=== PATIENT | male | born 1955 | race Caucasian/White ===

== ENCOUNTER 2018-03-29 15:43 | Outpatient (REF) | payer BC, SELFPAY ==
[2018-03-29 22:16] LABS: Anion Gap 9.7 mmol/L (3-11); BUN 16 mg/dL (7-18); CO2 27.3 mmol/L (21.0-32.0); CREATININE 1.01 mg/dL (0.70-1.30); Calcium 8.4 mg/dL (8.5-10.1); Chloride 106 mmol/L (98-107); Cholesterol 147 mg/dL (50-200); Glucose 120 mg/dL (70-100); HDL Cholesterol 32 mg/dL (40-60); LDL CHOLESTEROL 87 mg/dL (<100); Potassium 4.1 mmol/L (3.5-5.1); Sodium 143 mmol/L (136-145); Triglyceride 235 mg/dL (30-150)
[2018-03-29 22:57] LABS: Hemoglobin A1C 6.2 % (4.5-6.2)
== END 2018-03-29 15:44 ==
LOC: NCHCN 15:43
PROVIDERS: PCP Internal Medicine; Visit Provider Internal Medicine
DX: Z00.00 Encounter for general adult medical examination without abnormal findings (principal); I25.10 Atherosclerotic heart disease of native coronary artery without angina pectoris; E11.9 Type 2 diabetes mellitus without complications
CPT/HCPCS: 80048; 80061; 83721; 83036

== ENCOUNTER 2019-03-18 10:47 | Outpatient (REF) | payer MEDICARE, BC, SELFPAY ==
[2019-03-18 21:34] LABS: Anion Gap 8.2 mmol/L (3-11); BUN 22 mg/dL (7-18); CO2 28.8 mmol/L (21.0-32.0); Calcium 8.7 mg/dL (8.5-10.1); Chloride 106 mmol/L (98-107); Glucose 129 mg/dL (70-100); Potassium 4.4 mmol/L (3.5-5.1); Sodium 143 mmol/L (136-145)
[2019-03-18 21:42] LABS: Hemoglobin A1C 6.3 % (4.5-6.2)
[2019-03-18 21:56] LABS: COMMENT (LAB VIEW ONLY) 250.67 mg/dL
[2019-03-18 22:25] LABS: Microalb ug/mg Crea 4.6 ug/mg Cr
[2019-03-18 23:04] LABS: Calculated LDL 74 mg/dL; Cholesterol 141 mg/dL (50-200); HDL Cholesterol 30 mg/dL (40-60); Triglyceride 185 mg/dL (30-150)
== END 2019-03-18 11:07 ==
LOC: NCHCN 10:47
PROVIDERS: PCP Internal Medicine; Visit Provider Internal Medicine
DX: R03.0 Elevated blood-pressure reading, without diagnosis of hypertension (principal); E11.9 Type 2 diabetes mellitus without complications; E78.5 Hyperlipidemia, unspecified
CPT/HCPCS: 80048; 80061; 83721; 82043; 82570; 83036

== ENCOUNTER 2019-10-13 08:39 | Outpatient (REF) | payer MEDICARE, BC, SELFPAY ==
[2019-10-13 21:46] LABS: ALT 247 U/L (16-63); AST 236 U/L (15-37); Albumin 3.8 g/dL (3.4-5.0); Alkaline Phosphatase 118 U/L (46-116); Anion Gap 9.4 mmol/L (3-11); BUN 18 mg/dL (7-18); Bilirubin, Total 1.9 mg/dL (0.2-1.0); CO2 27.6 mmol/L (21.0-32.0); CREATININE 0.89 mg/dL (0.70-1.30); Calcium 8.6 mg/dL (8.5-10.1); Chloride 104 mmol/L (98-107); Glucose 133 mg/dL (74-106); Potassium 3.8 mmol/L (3.5-5.1); Sodium 141 mmol/L (136-145); Total Protein 6.5 g/dL (6.4-8.2)
== END 2019-10-13 08:59 ==
LOC: NCHCN 08:39
PROVIDERS: PCP Internal Medicine; Visit Provider Internal Medicine
DX: I25.10 Atherosclerotic heart disease of native coronary artery without angina pectoris (principal); K80.18 Calculus of gallbladder with other cholecystitis without obstruction; K76.0 Fatty (change of) liver, not elsewhere classified
CPT/HCPCS: 80053

== ENCOUNTER 2020-04-09 09:40 | Outpatient (REF) | payer MEDICARE, SELFPAY ==
[2020-04-09 21:26] LABS: ALT 34 U/L (16-63); AST 25 U/L (15-37); Albumin 3.9 g/dL (3.4-5.0); Alkaline Phosphatase 65 U/L (46-116); Anion Gap 6.1 mmol/L (3-11); BUN 13 mg/dL (7-18); CO2 29.9 mmol/L (21.0-32.0); Calcium 8.8 mg/dL (8.5-10.1); Calculated LDL 79 mg/dL (<100); Chloride 108 mmol/L (98-107); Cholesterol 159 mg/dL (<200); Glucose 130 mg/dL (74-106); HDL Cholesterol 28 mg/dL (40-60); Potassium 4.8 mmol/L (3.5-5.1); Sodium 144 mmol/L (136-145); Total Protein 6.8 g/dL (6.4-8.2); Triglyceride 263 mg/dL (<150)
[2020-04-10 18:41] LABS: PSA, Screening 1.9 ng/mL (0.0-4.5)
== END 2020-04-09 10:00 ==
LOC: NCHCN 09:40
PROVIDERS: PCP Internal Medicine; Visit Provider Internal Medicine
DX: E78.5 Hyperlipidemia, unspecified (principal); E11.9 Type 2 diabetes mellitus without complications; Z12.5 Encounter for screening for malignant neoplasm of prostate
CPT/HCPCS: 80053; 80061; 84153

== ENCOUNTER 2021-04-03 16:41 | Outpatient (REF) | payer MEDICARE, SELFPAY ==
[2021-04-03 18:03] LABS: Hemoglobin A1C 6.4 % (<5.7)
[2021-04-03 18:06] LABS: Anion Gap 9.6 mmol/L (3-11); BUN 21 mg/dL (7-18); CO2 28.4 mmol/L (21.0-32.0); Calcium 8.5 mg/dL (8.5-10.1); Chloride 106 mmol/L (98-107); Cholesterol 174 mg/dL (<200); Glucose 134 mg/dL (74-106); HDL Cholesterol 25 mg/dL (40-60); Sodium 144 mmol/L (136-145); Triglyceride 487 mg/dL (<150)
[2021-04-03 18:39] LABS: LDL CHOLESTEROL 77 mg/dL (<100)
== END 2021-04-03 16:42 | disposition home or self-care (01) ==
LOC: NCHCN 16:41
PROVIDERS: PCP Internal Medicine; Visit Provider Internal Medicine
DX: E11.9 Type 2 diabetes mellitus without complications (principal); E78.5 Hyperlipidemia, unspecified; I10 Essential (primary) hypertension
CPT/HCPCS: 80048; 80061; 83721; 83036

== ENCOUNTER 2021-04-12 16:02 | Outpatient (REF) | payer MEDICARE, SELFPAY ==
[2021-04-12 21:14] LABS: COMMENT (LAB VIEW ONLY) 128.91 mg/dL; Microalb ug/mg Crea 7.8 ug/mg Cr
== END 2021-04-12 16:03 | disposition home or self-care (01) ==
LOC: NCHCN 16:02
PROVIDERS: PCP Internal Medicine; Visit Provider Internal Medicine
DX: E11.9 Type 2 diabetes mellitus without complications (principal)
CPT/HCPCS: 82043; 82570

== ENCOUNTER 2021-07-03 08:11 | Outpatient (REF) | payer MEDICARE, SELFPAY ==
[2021-07-03 19:26] LABS: Hemoglobin A1C 5.9 % (<5.7)
[2021-07-03 19:27] LABS: Calculated LDL 89 mg/dL (<100); Cholesterol 159 mg/dL (<200); HDL Cholesterol 33 mg/dL (40-60); Triglyceride 186 mg/dL (<150)
== END 2021-07-03 08:12 | disposition home or self-care (01) ==
LOC: NCHCN 08:11
PROVIDERS: PCP Internal Medicine; Visit Provider Internal Medicine
DX: E78.5 Hyperlipidemia, unspecified (principal); E11.9 Type 2 diabetes mellitus without complications
CPT/HCPCS: 80061; 83036

== ENCOUNTER 2021-12-06 13:59 | Outpatient (REF) | payer MEDICARE, SELFPAY ==
[2021-12-06 14:12] LABS: HCT 47.1 % (40.0-50.0); HGB 15.1 g/dL (13.5-17.5); MCH 29.1 pg (27.0-33.0); MCHC 32.1 % (32.0-36.0); MCV 91 fL (80-95); MPV 12.6 fL (8.0-11.0); Platelet Count 206 10^3/uL (130-400); RBC 5.19 10^6/uL (4.36-5.78); RDW 12.1 % (11.8-14.1); RDW-SD 40.3 fL
[2021-12-06 14:24] LABS: ALT 163 U/L (16-63); AST 119 U/L (15-37); Alkaline Phosphatase 516 U/L (46-116); Anion Gap 9.4 mmol/L (3-11); BUN 31 mg/dL (7-18); Bilirubin, Total 1.6 mg/dL (0.2-1.0); CO2 29.6 mmol/L (21.0-32.0); CREATININE 1.2 mg/dL (0.70-1.30); Calcium 9.1 mg/dL (8.5-10.1); Chloride 99 mmol/L (98-107); Glucose 117 mg/dL (74-106); Potassium 4.2 mmol/L (3.5-5.1); Sodium 138 mmol/L (136-145); Total Protein 6.8 g/dL (6.4-8.2)
[2021-12-06 15:11] LABS: Immature Grans % 0.5
[2021-12-06 15:22] LABS: Bands % 18
[2021-12-06 15:23] LABS: Diff Comment Manual Differential; RBC Morphology Normal
== END 2021-12-06 14:00 | disposition home or self-care (01) ==
LOC: NCHCN 13:59
PROVIDERS: PCP Internal Medicine; Visit Provider Nurse Practitioner Family
DX: R73.03 Prediabetes (principal); K76.0 Fatty (change of) liver, not elsewhere classified; R63.4 Abnormal weight loss
CPT/HCPCS: 80053; 85027; 85007

== ENCOUNTER 2021-12-18 15:15 | Emergency (ER) | payer MEDICARE, SELFPAY ==
[2021-12-18 15:17] VITALS: BP 130/83; PULSE 122; RESP 18; TEMP 36.4; O2SAT 97
--- NOTE | 2021-12-18 15:30 | RT.EKG_ITS ---
APPROVED REPORT Exam: Resting ECG Reason for Exam: chest pain Patient Location: E HR:111 bpm ECG Measurements Heart Rate 111 AXIS TX 144 P 72 QRSd 100 QRS -89 QT 314 T 21 QTc 427 Conclusion Sinus tachycardia. LAD, consider left anterior fascicular block...axis(240,-40), S>R II III aVF
[2021-12-18 15:41] LABS: Bilirubin Small (Negative); Blood Small (Negative); Clarity Clear (Clear); Glucose Negative (Negative); Ketones Negative (Negative); Leukocyte Esterase Negative (Negative); Nitrite Negative (Negative); Specific Gravity 1.025 (1.005-1.025); Urobilinogen >=8.0 EU/dL (Up TO 0.2); pH 5.5 (5-8)
[2021-12-18 15:52] LABS: Bacteria Negative HPF (Negative); C & S Indicated? No; Crystals Few Amorphous HPF (Negative); Epithelial Cells Negative HPF (Negative); Mucus Heavy (Negative); WBC Negative HPF (0-5)
--- NOTE | 2021-12-18 16:00 | DI.CT_ITS ---
Exam(s) CT CHEST/ABD/PEL WO EXAM: CT CHEST/ABD/PEL WO CLINICAL HISTORY: Fall, recent cancer diagnosis. Weakness. TECHNIQUE: Imaging Protocol: Axial computed tomography images with coronal and sagittal reformatted images were created and reviewed CONTRAST MATERIAL: Noncontrast COMPARISON: No exams were available for comparison FINDINGS: CHEST: Tracheobronchial tree: Patent where visualized. Mediastinum and Anne: No dominant adenopathy or fluid collection. Pulmonary parenchyma: No consolidation. Innumerable scattered bilateral pulmonary nodules consistent with metastatic disease. The largest is at the major fissure between the right middle and lower lob es. Pleura: No effusion or pneumothorax. Lymph nodes: Within normal limits. Aorta: Thoracic portion non-dilated. Heart: Normal size. Mediastinal clips related to prior CABG Bones: Sternal wires. No rib or spine fracture. No gross evidence of lytic or blastic lesions. Esophagus: Marked thickening of lower esophagus and apparent lower esophageal mass. ABDOMEN: Liver: Multiple low-density lesions throughout both lobes consistent with metastatic disease. Small amount of fluid is seen around the liver. Gallbladder and biliary tract: Status post cholecystectomy no radiodense calculus or dilation. Pancreas: Normal density, no abnormal calcifications or inflammatory process. Spleen: Normal size. Small amount of fluid around the spleen. Kidneys: Normal size, contour and axis. Nonobstructing stones lower pole both kidneys. No obstructiv e uropathy. No masses seen. Adrenal glands: No masses seen. Aorta: Abdominal portion non-dilated. Lymph nodes: Multiple abnormally enlarged lymph nodes the level of the celiac axis, pantera hepatis Soft tissues: Unremarkable. PELVIS: Bladder: Symmetric distention, mild wall thickening. Two small stones at the right side of the rpg developer ior bladder. Bowel: Sigmoid diverticulosis. No evidence of diverticulitis. Large quantity of stool in the rectum . No visible mass. Moderate quantity of stool elsewhere. No obstruction or bowel wall thickening. Peritoneal cavity: Free fluid in the low pelvis. No abscess collection or mesenteric inflammatory re sponse. Bones: Degenerative changes. No evidence of fracture. No lytic or blastic lesions are identified. Reproductive organs: Enlarged prostate. IMPRESSION: Marked wall thickening of the distal esophagus with likely mass. Multiple bilateral pulmonary metastases. Multiple liver metastases. Small amount of ascites. Upper abdominal adenopathy. No evidence fracture in the chest abdomen or pelvis. Large quantity of stool in the rectum. RADIATION DOSE DELIVERED: 1,213.58mGy.cm Total DLP DATA REPOSITORY: All CT scans at this facility are submitted to the National Radiology Data Registry (NRDR) Dose Index Registry (DIR) with the [employer] ([employer]). RADIATION OPTIMIZATION: All CT scans at this facility use at least one of these dose optimization te chniques: automated exposure control; mA and/or kV adjustment per patient size (includes targeted exa ms where dose is matched to clinical indication); or iterative reconstruction.
--- NOTE | 2021-12-18 16:00 | DI.CT_ITS ---
Exam(s) CT HEAD CERVICAL SPINE WO EXAM: CT HEAD CERVICAL SPINE WO CLINICAL HISTORY: Fall, recent cancer diagnosis, pain. TECHNIQUE: Imaging Protocol: Axial computed tomography images with coronal and sagittal reformatted images were created and reviewed COMPARISON: No exams were available for comparison FINDINGS: Head CT Ventricles and Extra axial spaces: Normal in size and morphology for the patient's age. Hemorrhage: None. Cerebral parenchyma: Mild atrophy. No evidence of mass or infarct. Midline shift: None. Brainstem/Cerebellum: Normal. Calvarium: Normal. Visualized Paranasal sinuses/Mastoids: Clear. Cervical Spine CT BONES: Vertebral body heights are maintained. Alignment is normal. There is no evidence of acute frac ture. Prominent endplate osteophytes prior projecting anteriorly and posteriorly, consistent with DISH. Na rrowing of the central canal from C5 through C7. SOFT TISSUES: No paraspinal hematoma. The airway appears intact. No pneumothorax is seen at the lung apices. IMPRESSION: Head CT: No acute abnormality. C-spine CT: Degenerative changes, no acute abnormality. RADIATION DOSE DELIVERED: 1,622.99mGy.cm Total DLP DATA REPOSITORY: All CT scans at this facility are submitted to the National Radiology Data Registry (NRDR) Dose Index Registry (DIR) with the [employer] (ACR). RADIATION OPTIMIZATION: All CT scans at this facility use at least one of these dose optimization te chniques: automated exposure control; mA and/or kV adjustment per patient size (includes targeted exa ms where dose is matched to clinical indication); or iterative reconstruction.
--- NOTE | 2021-12-18 16:16 | ED.GENADUL_ITS ---
Discharge Plan Disposition Patient Disposition: AGAINST MEDICAL ADVICE Condition: Serious Discharge Details Clinical Impression: Metastatic carcinoma, Acute dehydration, Non-ST elevation UT (NSTEMI) Primary Care Provider: Paulino Davison ED Provider: Ian Byrnes Home Meds and New Rx's Prescriptions: New lactulose 20 gram/30 mL solution 20 g PO BID 7 Days Qty: 420 0RF Discharge Instructions Instructions: Dehydration (ED) Additional Instructions: As we discussed you have elected to leave AGAINST MEDICAL ADVICE and risk of permanent disability or . Your work-up today revealed what appears to be metastatic cancer present in the lungs, liver, and esophagus. You had evidence of heart injury and heart attack. You were given aspirin tonight. Please call the [facility] tomorrow and asked them if you should continue aspirin prior to your planned procedure on Thursday. Take your lactulose as prescribed. This medication will help to clear your clare vated ammonia level, and may result in some loose stools. We have asked our career specialist to arrange a follow-up for you at [facility] at the end of this week or for Thursday. You may return at anytime for repeat evaluation Medical Decision Making This is a 66-year-old male who was recently seen in his primary care office for right upper quadrant pain and weight loss. He was referred to an outlying ER where he states she was diagnosed with metastatic lesions for which she has follow-up at the [facility] this week. He has had weakness and a 30 pound weight loss. His daughter states he seemed a little confused today and he had fallen. He did not hurt himself. He arrives to ER afebrile, interactive, he is dehydrated and tachycardic on exam. I obtained and reviewed patient's medical record from visit with Dr. Villa, [facility] on December 18. This notes diagnosis of abdominal pain, weight loss, metastatic malignant neoplasm. Patient with a previous history of prediabetes, gout, hyperlipidemia, coronary artery disease status post CABG, fatty liver disease. Immunizations including influenza and COVID-19 x3 are up-to-date. CT of the abdomen pelvis with IV contrast at [facility] on December 18 revealed thickened distal esophagus, abnormal lung nodules, and With low-density masses in the liver. Family states the patient was taken off of all medications. He previously was taking lisinopril 20 mg, amlodipine 5 mg, atorvastatin 40 mg, metformin 500 mg twice a day and aspirin 81 mg daily. He has primarily been existing on 2 daily ensures to boost calories. Today's imaging reveals liver, lung, esophageal carcinoma/mass. See the formal report. CT scan of the head and cervical spine were unremarkable for an acute process. Laboratory reveals multiple derangements. Patient's white blood cell count is 40, hematocrit 49, platelets 75 Potassium elevated at 5.5. BUN is 60 with creatinine 1.5. Total bili 2.1, AST 317, ALT 350, alk phos 1018. Albumin is 2.1. Ammonia level elevated at 64. Troponin is 1919. Patient has likely a component of hepatic encephalitis, he is having non-STEMI, he has acute kidney injury. Following 2 L of fluid the patient's pulse corrected by 30 points. He felt better. He stated he wished to be discharged to home and wanted to follow-up with his primary care physician in [place] as well as for planned outpatient biopsy on Thursday at the [facility]. We discussed the risks and benefits of leaving including permanent disability and . Patient demonstrates decision-making capacity and we worked collaboratively with his daughter at the bedside to determine the best disposition for the patient. I will prescribe him lactulose as an outpatient. Given the evidence of non-STEMI was given an aspirin, and will be instructed to call the [facility] tomorrow regarding preoperative medication management. HPI General Mode of arrival: ambulatory . Date/Time Provider Initiated Documentation: 12/18/21 15:33 . Limitations to Documentation: no limitations . Information obtained by: patient . History of Present Illness 66 year old M presents to the emergency department with the chief complaint of Fall, weakness, recent cancer diagnosis, described as moderate, Patient started experiencing this week(s) and it has been constant. improves with No relieving factors improve symptom(s), No exacerbating factors reported . Patient notes other (Mild ache to her right arm. No other significant pain. Has lost 30 pounds. Is scheduled for biopsy of liver lesion next week). Patient did receive the following treatments prior to arrival, none Related Data Home Medications Medication Instructions Recorded Confirmed lactulose 20 gram/30 mL oral 20 g (30 mL) PO BID 7 Days #420 ml 12/18/21 solution Previous Rx's Medication Instructions Recorded lactulose 20 gram/30 mL oral 20 g (30 mL) PO BID 7 Days #420 ml 12/18/21 solution General Stated Complaint: [facility] CASSANDRA: 3 Review of Systems Narrative: Weakness, weight loss of 30 pounds, decreased p.o. intake. Fell at home. No recent illness. 8 systems were reviewed and otherwise negative. PFSH All Active Problems (Updated 12/18/21 @ 18:35 by Ian Byrnes MD) Metastatic carcinoma (Acute) Acute dehydration (Acute) Non-ST elevation UT (NSTEMI) (Acute) Social History Smoking/Tobacco Use Status: Former Tobacco Use Smoking risk assessment performed?: Yes Alcohol Intake: never Drug use: Never Substance use type: does not use Exam Narrative Exam Narrative: GEN: awake, alert, oriented 3. Pleasant, cachectic HEAD: Normocephalic, atraumatic ENT: Mucous membranes dry, oropharynx unremarkable, External ear exam unremarkable EYES: PERRL, EOMI NECK: Full ROM, no REBECCA, no menigismus CHEST/RESP: Healed midline sternotomy scar. nontender, clear to auscultation bilateral, no wheeze/rhonchi/rales CARDIOVASCULAR: Distant, regular and tachycardic, no murmur, rub jessika. 2+ Rad pulse bilateral ABDOMEN: Soft, nontender, no mass. +Bowel sounds EXT: Full ROM, no edema, no rash. Abrasion right wrist. No significant bony tenderness. Neuro: Grossly normal neurologic exam, conversant, interactive. Psych: Speech fluent, thoughts congruent, affect normal Course Vital Signs Vital signs: Vital Signs Temperature 36.4 C L 12/18/21 15:17 Pulse 122 H 12/18/21 15:17 Respiratory Rate 18 12/18/21 15:17 Blood Pressure 130/83 12/18/21 15:17 Pulse Oximetry 97 12/18/21 15:17 Temperature 36.4 C L 12/18/21 15:17 Temperature Source Temporal Artery Scan 12/18/21 15:17 Pulse 122 H 12/18/21 15:17 Respiratory Rate 18 12/18/21 15:17 Blood Pressure 130/83 12/18/21 15:17 Blood Pressure Position Sitting 12/18/21 15:17 Pulse Oximetry 97 12/18/21 15:17 Oxygen Delivery Method Room Air 12/18/21 15:17 Oxygen Flow Rate 0 12/18/21 15:17 Pain Level 8 12/18/21 15:17 Lab/Test Results Lab/Test Results: Laboratory Tests Range/Units 12/18/21 15:30 Urine Color (Yellow) [place] Urine Clarity (Clear) Clear Urine pH (5-8) 5.5 Ur Specific [place] (1.005-1.025) 1.025 Urine Protein (Negative) mg/dL 30 H Urine Ketones (Negative) mg/dL Negative Urine Blood (Negative) Small H Urine Nitrite (Negative) Negative Urine Bilirubin (Negative) Small H Urine Urobilinogen (Up TO 0.2) EU/dL >=8.0 Ur Leukocyte Esterase (Negative) Negative Urine RBC (0-2) HPF 10-20 H Urine WBC (0-5) HPF Negative Ur Epithelial Cells (Negative) HPF Negative Urine Crystals (Negative) HPF Few Amorphous Urine Bacteria (Negative) HPF Negative Urine Casts (Negative) LPF >50 Hyaline Urine Mucus (Negative) Heavy Ur Culture Indicated? No Urine Glucose (Negative) mg/dL Negative
[2021-12-18 17:11] LABS: Abs Immature Grans 0.61 10^3/uL (0.0-0.06); Basophils % 0.3; Eosinophils % 1.1; HCT 49.7 % (40.0-50.0); HGB 16.1 g/dL (13.5-17.5); Immature Grans % 1.5; Lymphocytes % 1.3; MCH 28.2 pg (27.0-33.0); MCHC 32.4 % (32.0-36.0); MCV 87 fL (80-95); MPV 12.9 fL (8.0-11.0); Monocytes % 5.4; Neutrophils % 90.4; RDW 13.4 % (11.8-14.1); RDW-SD 42.3 fL
[2021-12-18 17:22] LABS: Ammonia 64 umol/L (11-32)
[2021-12-18 17:25] LABS: Absolute Basophil Count 0.12 10^3/uL (0.0-0.2); Absolute Eosinophil Count 0.44 10^3/uL (0.0-0.7); Absolute Lymphocyte Count 0.52 10^3/uL (1.2-3.4); Absolute Monocyte Count 2.16 10^3/uL (0.1-0.8); Absolute Neutrophil Count 36.18 10^3/uL (1.2-6.7); WBC 40.02 10^3/uL (4.4-10.8)
[2021-12-18 17:35] LABS: ALT 350 U/L (16-63); AST 317 U/L (15-37); Albumin 2.1 g/dL (3.4-5.0); Alkaline Phosphatase 1018 U/L (46-116); Anion Gap 11.7 mmol/L (3-11); BUN 60 mg/dL (7-18); Bilirubin, Total 2.1 mg/dL (0.2-1.0); CO2 25.3 mmol/L (21.0-32.0); CREATININE 1.5 mg/dL (0.70-1.30); Chloride 101 mmol/L (98-107); Estimated GFR 46.68 (mL/min/1.73m2); Glucose 217 mg/dL (74-106); Magnesium 2.7 mg/dL (1.8-2.4); Potassium 5.5 mmol/L (3.5-5.1); Sodium 138 mmol/L (136-145)
[2021-12-18 17:36] LABS: Troponin I 1919 ng/L (<or=60)
[2021-12-18 17:42] LABS: Diff Comment Diff Reviewed; Platelet Count 75 10^3/uL (130-400); RBC Morphology Normal
[2021-12-18] MEDS: MORPHine 4 MG/ML SYR IVP (18:02)
[2021-12-18 18:05] VITALS: BP 110/68; PULSE 95; RESP 29; TEMP 36.4; O2SAT 96
[2021-12-18 18:10] LABS: PTT Activated 27.6 sec (21.0-27.5); Prothrombin Time 20.1 sec (9.3-11.0)
--- NOTE | 2021-12-18 18:35 | NUR.NOTE ---
Referral faxed to [facility], Dr Villa, for cancer everywhere, at the end of this week or beginning of next week. Ankita Grider
[2021-12-18] MEDS: Lactulose 20 GM/30 ML CUP 40 GM PO (18:40)
[2021-12-18] MEDS: Aspirin 81 MG CHEW 162 MG PO (18:40)
[2021-12-18 19:31] LABS: COVID-19 PCR Negative (Negative); Influenza A PCR Negative (Negative); Influenza B PCR Negative (Negative); RSV PCR Negative (Negative)
[2021-12-18 19:41] LABS: Source Nasopharynx
== END 2021-12-18 20:19 | disposition left against medical advice (07) ==
PROVIDERS: Emergency Provider Emergency Medicine; PCP Internal Medicine
DX: I21.4 Non-ST elevation (NSTEMI) myocardial infarction (principal); E86.0 Dehydration; C78.7 Secondary malignant neoplasm of liver and intrahepatic bile duct; C78.00 Secondary malignant neoplasm of unspecified lung; C78.89 Secondary malignant neoplasm of other digestive organs; R07.9 Chest pain, unspecified; Z53.29 Procedure and treatment not carried out because of patient's decision for other reasons
CPT/HCPCS: 36415; 71250; 80053; 87637; 93005; 96374; 99284; 70450; 72125; 74176; 81003; 81015; 82140; 83735; 84484; 85025; 85610; 85730; 93010; J2270